=== PATIENT | male | born 1955 | race Caucasian/White ===

== ENCOUNTER → 2018-04-15 14:51 | Oncology outpatient (ONC) | payer OTHER, MEDICAID, SELFPAY ==
[2018-04-15 15:08] LABS: Add Manual Diff / Slide Review NO; Basophils Percent Auto 0.8 % (0-2); Eosinophils Percent Auto 2.9 % (2-4); Hematocrit 43.7 % (41-53); Hemoglobin 14.8 g/dL (13.5-17.5); Lymphocytes Percent Auto 22.7 % (25-40); Mean Corpuscular HGB Conc 33.8 % (30-36); Mean Corpuscular Hemoglobin 29.7 PG (26-34); Mean Corpuscular Volume 87.8 fL (80-100); Monocytes Percent Auto 9.4 % (3-14); Neutrophils Absolute Auto 4200 /uL (3000-5900); Neutrophils Percent Auto 64.2 % (50-75); Platelet Count 315 X10^3/uL (150-400); Red Blood Cell Count 4.98 X10^6/uL (4.5-5.9); Red Cell Distribution Width 14.3 % (11.6-14.8); White Blood Cell Count 6.5 X10^3/uL (4.5-11.0)
[2018-04-15 15:19] LABS: Alanine Aminotransferase 27 IU/L (21-72); Albumin 4.1 g/dL (3.5-5.0); Albumin Globulin Ratio 1.1 (1.0-2.8); Alkaline Phosphatase 100 U/L (38-126); Aspartate Aminotransferase 21 IU/L (17-59); Bilirubin Total 0.6 mg/dL (0.2-1.3); Blood Urea Nitrogen 11 mg/dL (9-20); Calcium 9.2 mg/dL (8.4-10.2); Carbon Dioxide 26 mmol/L (22-32); Chloride 102 mmol/L (98-107); Estimated Glomerular Filt Rate > 60.0 mL/min (>60); Globulin 3.8 g/dL (1.7-4.1); Glucose 109 mg/dL (80-110); HEMOLYSIS < 15 (0-50); Sodium 137 mmol/L (137-145); Total Protein 7.9 g/dL (6.3-8.2)
[2018-04-15 15:34] VITALS: BP 122/88; PULSE 84; RESP 18; TEMP 36.4; O2SAT 97
--- NOTE | 2018-04-15 15:35 | ONC.APRN.PN ---
Assessment and Plan (1) Squamous cell carcinoma Current visit: Yes Status: Acute 04/15/18 16:14 Navdeep is a 62-year-old male with history of perineal squamous cell carcinoma. He is followed by [facility] also Urology/Nephrology. He complains of cloudy/foul smelling urine today. Also complaining of back pain. [place]/2 weeks ago. We will collect urine specimen sent for urinalysis also urine culture. I will also send the patient for thoracic and lumbar spinal x-rays to rule out acute fracture. I will write him a prescription for Flexeril 5 mg 20.. I strongly encouraged the patient consider physical therapy if x-rays are negative. We have called in requested CT report from his urologist. Patient is self reporting he has ?lung cancer?. Understandably he is quite concerned and would like more information. Patient has appointment at [facility] April 22. Patient is to return shortly after this appointment to tie up above loose ends. 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 The patient then went on to receive 4 weeks of twice daily radiation therapy, sandwiched between 4 months of chemotherapy with irinotecan and carboplatin. His chemotherapy ran from April 04, 2017, through August 01, 2017. The patient was then seen in followup by Dr. Morin at [facility] in the fourth quarter of last year. A surveillance CAT scan and MRI of the pelvis on August 29, 2017, showed no metastases, with further reduction in the pelvic mass. A decision was made at that time to not pursue surgical intervention. I would note that the CAT scan of the chest in August confirmed pulmonary emboli. The patient has been on anticoagulation since that time. More recently, this gentleman had a surveillance CAT scan of the abdomen and pelvis on November 20, 2017. The previous pelvic mass in the perineum now appeared to be almost completely resolved. No new evidence of metastatic disease was noted. Appointment at [facility] next week April 22, 2018. Navdeep remains on daily xarelto. 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 We have called for this report. Patient reports ongoing cough x1 month. Also increased back pain times 1-1/2 weeks. Also reporting foul smelling urine, cloudy urine. Back pain is after suffering a ground [place] fall [place] the [place]. He has had similar pain before with acute injury. He is having difficulty sleeping due to pain. Pain comes and goes. It is exacerbated with movement. Coughing also exacerbates pain. Patient reports his cough is a dry cough, nonproductive. No shortness of breath. No fever or chills. Patient reports overall he is feeling ?really good?. However, understandably, he is concerned about this recent news on CT. Navdeep reports his short range air defense artillery did a CT scan and patient was subsequently informed ?you have a lung mass, it is probably lung cancer?. Results - Labs 04/15/18 14:57 04/15/18 14:57 Laboratory Last Values WBC 6.5 X10^3/uL (4.5-11.0) 04/15/18 14:57 RBC 4.98 X10^6/uL (4.5-5.9) 04/15/18 14:57 Hgb 14.8 g/dL (13.5-17.5) 04/15/18 14:57 Hct 43.7 % (41-53) 04/15/18 14:57 MCV 87.8 fL (80-100) 04/15/18 14:57 MCH 29.7 PG (26-34) 04/15/18 14:57 MCHC 33.8 % (30-36) 04/15/18 14:57 RDW 14.3 % (11.6-14.8) 04/15/18 14:57 Plt Count 315 X10^3/uL (150-400) 04/15/18 14:57 Neut % (Auto) 64.2 % (50-75) 04/15/18 14:57 Lymph % (Auto) 22.7 % (25-40) L 04/15/18 14:57 [place] % (Auto) 9.4 % (3-14) 04/15/18 14:57 Eos % (Auto) 2.9 % (2-4) 04/15/18 14:57 Baso % (Auto) 0.8 % (0-2) 04/15/18 14:57 Neut # (Auto) 4200 /uL (8397-1004) 04/15/18 14:57 Sodium 137 mmol/L (137-145) 04/15/18 14:57 Potassium 4.0 mmol/L (3.4-5.1) 04/15/18 14:57 Chloride 102 mmol/L (98-107) 04/15/18 14:57 Carbon Dioxide 26 mmol/L (22-32) 04/15/18 14:57 BUN 11 mg/dL (9-20) 04/15/18 14:57 Creatinine 1.00 mg/dL (0.66-1.25) 04/15/18 14:57 Estimated GFR > 60.0 mL/min (>60) 04/15/18 14:57 BUN/Creatinine Ratio 11.0 (6-22) 04/15/18 14:57 Glucose 109 mg/dL (80-110) 04/15/18 14:57 Calcium 9.2 mg/dL (8.4-10.2) 04/15/18 14:57 Total Bilirubin 0.6 mg/dL (0.2-1.3) 04/15/18 14:57 AST 21 IU/L (17-59) 04/15/18 14:57 ALT 27 IU/L (21-72) 04/15/18 14:57 Alkaline Phosphatase 100 U/L (38-126) 04/15/18 14:57 Total Protein 7.9 g/dL (6.3-8.2) 04/15/18 14:57 Albumin 4.1 g/dL (3.5-5.0) 04/15/18 14:57 Globulin 3.8 g/dL (1.7-4.1) 04/15/18 14:57 Albumin/Globulin Ratio 1.1 (1.0-2.8) 04/15/18 14:57 Home Medications and Allergies Home Medications Medication Instructions Recorded Confirmed Type polyethylene glycol 3350 [Miralax] 17 gm PO QDAY #0 08/08/17 History oxycodone 2 tab PO Q4HP PRN #120 tab 04/03/18 Rx cyclobenzaprine 5 mg PO Q8-10H PRN #20 tab 04/15/18 Rx Allergies Allergy/AdvReac Type Severity Reaction Status Date / Time No Known Allergies Allergy Uncoded 01/23/18 12:42 Exam Narrative: well appearing - Constitutional positive no acute distress - Routine HEENT Exam Head: Present: normocephalic, atraumatic ENT: Present: mucous membranes moist - Routine Neck Exam Present: supple. Absent: lymphadenopathy - Routine Respiratory Exam Present: Clear to auscultation bilaterally. Absent: rales, rhonchi, wheezes - Routine Cardiovascular Exam Present: RRR. Absent: JVD - Routine Abdominal Exam Present: soft, normoactive bowel sounds. Absent: tenderness, distended, organomegaly - Routine Extremities Exam Absent: edema, calf tenderness - Routine Back/Spine Exam Back/Spine: Present: paraspinal tenderness, vertebral tenderness, muscle spasm. Absent: CVA tenderness, abnormal straight leg raise, erythema, warmth Comments: TTP over T8 + paraspinal tenderness right approx T8 No flank pain - Routine Skin Exam Present: intact, normal turgor. Absent: petechiae, rash - Routine Neurological Exam Present: alert, oriented X3 - Routine Psychiatric Exam Present: normal affect
--- NOTE | 2018-04-15 15:41 | P.PNONC_ITS ---
Assessment and Plan (1) Squamous cell carcinoma Current visit: Yes Status: Acute 04/15/18 16:14 Navdeep is a 62-year-old male with history of perineal squamous cell carcinoma. He is followed by [facility] also Urology/Nephrology. He complains of cloudy/foul smelling urine today. Also complaining of back pain. He did [place] a fall at the beach about 1-1/2 weeks ago. We will collect urine specimen sent for urinalysis also urine culture. I will also send the patient for thoracic and lumbar spinal x-rays to rule out acute fracture. I will write him a prescription for Flexeril 5 mg 20.. I strongly encouraged the patient consider physical therapy if x-rays are negative. We have called in requested CT report from his urologist. Patient is self reporting he has ?lung cancer?. Understandably he is quite concerned and would like more information. Patient has appointment at [facility] April 22. Patient is to return shortly after this appointment to tie up above loose ends. 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 The patient then went on to receive 4 weeks of twice daily radiation therapy, sandwiched between 4 months of chemotherapy with irinotecan and carboplatin. His chemotherapy ran from April 04, 2017, through August 01, 2017. The patient was then seen in followup by Dr. Morin at [facility] in the fourth quarter of last year. A surveillance CAT scan and MRI of the pelvis on August 29, 2017, showed no metastases, with further reduction in the pelvic mass. A decision was made at that time to not pursue surgical intervention. I would note that the CAT scan of the chest in August confirmed pulmonary emboli. The patient has been on anticoagulation since that time. More recently, this gentleman had a surveillance CAT scan of the abdomen and pelvis on November 20, 2017. The previous pelvic mass in the perineum now appeared to be almost completely resolved. No new evidence of metastatic disease was noted. Appointment at [facility] next week April 22, 2018. Navdeep remains on daily xarelto. 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 We have called for this report. Patient reports ongoing cough x1 month. Also increased back pain times 1-1/2 weeks. Also reporting foul smelling urine, cloudy urine. Back pain is after suffering a [place] the [place]. He has had similar pain before with acute injury. He is having difficulty sleeping due to pain. Pain comes and goes. It is exacerbated with movement. Coughing also exacerbates pain. Patient reports his cough is a dry cough, nonproductive. No shortness of breath. No fever or chills. Patient reports overall he is feeling ?really good ?. However, understandably, he is concerned about this recent news on CT. Navdeep reports his plant operator control room operator did a CT scan and patient was subsequently informed ?you have a lung mass, it is probably lung cancer?. Results - Labs 04/15/18 14:57 04/15/18 14:57 Laboratory Last Values WBC 6.5 X10^3/uL (4.5-11.0) 04/15/18 14:57 RBC 4.98 X10^6/uL (4.5-5.9) 04/15/18 14:57 Hgb 14.8 g/dL (13.5-17.5) 04/15/18 14:57 Hct 43.7 % (41-53) 04/15/18 14:57 MCV 87.8 fL (80-100) 04/15/18 14:57 MCH 29.7 PG (26-34) 04/15/18 14:57 MCHC 33.8 % (30-36) 04/15/18 14:57 RDW 14.3 % (11.6-14.8) 04/15/18 14:57 Plt Count 315 X10^3/uL (150-400) 04/15/18 14:57 Neut % (Auto) 64.2 % (50-75) 04/15/18 14:57 Lymph % (Auto) 22.7 % (25-40) L 04/15/18 14:57 [place] % (Auto) 9.4 % (3-14) 04/15/18 14:57 Eos % (Auto) 2.9 % (2-4) 04/15/18 14:57 Baso % (Auto) 0.8 % (0-2) 04/15/18 14:57 Neut # (Auto) 4200 /uL (2588-5601) 04/15/18 14:57 Sodium 137 mmol/L (137-145) 04/15/18 14:57 Potassium 4.0 mmol/L (3.4-5.1) 04/15/18 14:57 Chloride 102 mmol/L (98-107) 04/15/18 14:57 Carbon Dioxide 26 mmol/L (22-32) 04/15/18 14:57 BUN 11 mg/dL (9-20) 04/15/18 14:57 Creatinine 1.00 mg/dL (0.66-1.25) 04/15/18 14:57 Estimated GFR > 60.0 mL/min (>60) 04/15/18 14:57 BUN/Creatinine Ratio 11.0 (6-22) 04/15/18 14:57 Glucose 109 mg/dL (80-110) 04/15/18 14:57 Calcium 9.2 mg/dL (8.4-10.2) 04/15/18 14:57 Total Bilirubin 0.6 mg/dL (0.2-1.3) 04/15/18 14:57 AST 21 IU/L (17-59) 04/15/18 14:57 ALT 27 IU/L (21-72) 04/15/18 14:57 Alkaline Phosphatase 100 U/L (38-126) 04/15/18 14:57 Total Protein 7.9 g/dL (6.3-8.2) 04/15/18 14:57 Albumin 4.1 g/dL (3.5-5.0) 04/15/18 14:57 Globulin 3.8 g/dL (1.7-4.1) 04/15/18 14:57 Albumin/Globulin Ratio 1.1 (1.0-2.8) 04/15/18 14:57 Home Medications and Allergies Home Medications Medication Instructions Recorded Confirmed Type polyethylene glycol 3350 [Miralax] 17 gm PO QDAY #0 08/08/17 History oxycodone 2 tab PO Q4HP PRN #120 tab 04/03/18 Rx cyclobenzaprine 5 mg PO Q8-10H PRN #20 tab 04/15/18 Rx Allergies Allergy/AdvReac Type Severity Reaction Status Date / Time No Known Allergies Allergy Uncoded 01/23/18 12:42 Exam Narrative: well appearing - Constitutional positive no acute distress - Routine HEENT Exam Head: Present: normocephalic, atraumatic ENT: Present: mucous membranes moist - Routine Neck Exam Present: supple. Absent: lymphadenopathy - Routine Respiratory Exam Present: Clear to auscultation bilaterally. Absent: rales, rhonchi, wheezes - Routine Cardiovascular Exam Present: RRR. Absent: JVD - Routine Abdominal Exam Present: soft, normoactive bowel sounds. Absent: tenderness, distended, organomegaly - Routine Extremities Exam Absent: edema, calf tenderness - Routine Back/Spine Exam Back/Spine: Present: paraspinal tenderness, vertebral tenderness, muscle spasm. Absent: CVA tenderness, abnormal straight leg raise, erythema, warmth Comments: TTP over T8 + paraspinal tenderness right approx T8 No flank pain - Routine Skin Exam Present: intact, normal turgor. Absent: petechiae, rash - Routine Neurological Exam Present: alert, oriented X3 - Routine Psychiatric Exam Present: normal affect
[2018-04-15 17:00] LABS: Appearance Urine UA SL CLOUDY; Bilirubin Urine UA NEGATIVE (NEGATIVE); Color Urine UA YELLOW; Glucose Urine UA NEGATIVE (Normal); Ketones Urine UA NEGATIVE (NEGATIVE); Leukocyte Esterase Urine UA 1+ (NEGATIVE); Nitrite Urine UA POSITIVE (Negative); Occult Blood Urine UA TRACE-LYSED (Negative); Protein Urine UA NEGATIVE (Negative); Urobilinogen Urine UA 0.2 E.U./dL (0.2)
[2018-04-15 17:04] LABS: RBC Urine 0-1/HPF (0-5/HPF); WBC Urine 30-100/HPF (0-5/HPF)
[2018-04-15 17:05] LABS: Bacteria Urine Many (>30); Culture Indicated Urine Specimen Cultured; Squamous Epithelial Cell Urine 0-1 /HPF
--- NOTE | 2018-04-25 12:11 | PC.NURSE ---
Addendum entered by Rain Mena R.N. 04/26/18 15:13: Per Shelly, pt was issued a 30 day supply. He is currently under the care of Dr Lezama at [facility] and further refills should be per him Original Note: Pt called today requesting a refill on his oxycodone 5mg tabs. Sig is 2 tab PO Q4HP PRN #120. If agreed please drive a script to be placed in Will Call for bean picker machine operator by pt.
--- NOTE | 2018-04-29 08:45 | PC.NURSE ---
Pt's called early this am wanting pt to be scheduled to be seen today due to difficulty talking Schedulers asked triage to assess.Spoke with pt's Pascale who reports Navdeep is experiencing facial paralysis and aphasia.Explained that due to the seriousness of his neurological symptoms he is best evaluated at the ER. explained this to pt .Had discussed with Shelly MARTINEZ prior who agreed with the plan.
== END ==
PROVIDERS: Visit Provider Nurse Practitioner Gerontology
DX: C76.3 Malignant neoplasm of pelvis (principal); M54.9 Dorsalgia, unspecified; R05 Cough; Z79.02 Long term (current) use of antithrombotics/antiplatelets
CPT/HCPCS: 36415; 80053; 81001; 85025; 87077; 87086; 87186; 99214

== ENCOUNTER → 2018-04-25 14:25 | Outpatient (CLI) | payer OTHER, MEDICAID, SELFPAY ==
--- NOTE | 2018-04-25 | DI.RAD.S_ITS ---
PROCEDURE: XR LUMBAR SPINE 2-3V INDICATIONS: ACUTE BACK PAIN S/P FALL TECHNIQUE: 3 views of the lumbar spine were acquired. COMPARISON: None. FINDINGS: Bones: 5 [id number] vertebrae are present. Spine is tilted to the right and there is mild retrolisthesis at L1-2, L2-3 and L3-4. Advanced disc degeneration and spurring at all lumbar levels, most marked at L3-4 and L4-5. No vertebral body compression fractures. No suspicious bony lesions. Soft tissues: Overlying bowel gas pattern is normal. No suspicious soft tissue calcifications. IMPRESSION: Chronic degenerative spine disease. No acute bony abnormality. Dictated by: Khari Brito M.D. on 04/25/2018 at 15:04 Approved by: Khari Brito M.D. on 04/25/2018 at 15:06
--- NOTE | 2018-04-25 | DI.RAD.S_ITS ---
PROCEDURE: XR THORACIC SPINE 3V INDICATIONS: ACUTE BACK PAIN S/P FALL TECHNIQUE: 3 views of the thoracic spine were acquired. COMPARISON: None. FINDINGS: Bones: No fractures or dislocations. No suspicious bony lesions. 12 pairs of ribs are noted, and appear intact where visualized. Soft tissues: No paravertebral stripe thickening. IMPRESSION: Negative for fracture Dictated by: Khari Birto M.D. on 04/25/2018 at 15:03 Approved by: Khari Brito M.D. on 04/25/2018 at 15:04
--- NOTE | 2018-06-14 09:32 | ONC.NAV ---
Description: [facility] Records Request Activity: [employer] compiled and faxed pt's ONC records to the [employer], per their request.
== END ==
PROVIDERS: Visit Provider Nurse Practitioner Gerontology
DX: M54.9 Dorsalgia, unspecified (principal)
CPT/HCPCS: 72072; 72100

== ENCOUNTER 2018-04-29 10:31 | Emergency (ER) | payer OTHER, MEDICAID, SELFPAY ==
--- NOTE | 2018-04-29 10:35 | ED.NEUROSD ---
HPI - Neuro Symptoms/Deficit General Chief Complaint: Neuro Symptoms/Deficit Stated Complaint: right side weakness, states possible stroke Time Seen by Provider: 04/29/18 10:33 Source: patient and family Mode of arrival: ambulatory Limitations: no limitations History of Present Illness HPI Narrative: patient is a 62-year-old male brought in by family members for concerns of a possible stroke. Initially it was difficult obtaining a history because the patient states that on Sunday he started having vague neurologic symptoms in his arms and legs and then he stated that the symptoms that brought him in today started later Sunday night. His family member who is at bedside stated that the symptoms started at 5 o'clock yesterday. The family member also states that yesterday afternoon his symptoms improved but the patient denies this. His symptoms include weakness in his right arm and his right leg. Reports of the right side of his face drooping and also problems finding words. Patient denies headaches or vision changes. He states that he can speak but just has difficulty finding words. Initially he stated that he was taking anticoagulation but upon further questioning he states that he has not taken any these medicines for over a month. Patient does have a history of bladder cancer. He has been treated for this with radiation and chemotherapy. Sometime within the past several months patient had respiratory symptoms. It was initially thought that he had a pulmonary embolism and that was why he was on the anticoagulation. A his family member then stated that the presumed clot was actually metastasis to his lungs. He has not undergone any treatment for this. His oncologist is Dr. Banks at [facility]. His primary doctor is Dr. noguera located here in the [facility] area. Related Data Home Medications Medication Instructions Recorded Confirmed polyethylene glycol 3350 [Miralax] 17 gm PO QDAY PRN #0 08/08/17 04/29/18 oxycodone 2 tab PO Q4H PRN 04/29/18 04/29/18 Allergies Allergy/AdvReac Type Severity Reaction Status Date / Time No Known Drug Allergies Allergy Verified 04/29/18 10:37 Review of Systems Constitutional Denies chills, Denies fatigue, Denies fever(s), Denies frequent falls, Denies headache(s) and Denies weakness Eyes Denies blind spots, Denies blurry vision, Denies change in vision, Denies diplopia and Denies eye pain ENT Ears, Nose, Mouth, and Throat: Denies vertigo, Denies dizziness, Denies dry mouth, Denies otalgia, Denies facial pain, Denies headache(s), Denies disequilibrium, Denies sinus pressure, Denies sore throat and Denies throat swelling Cardiovascular Denies chest pain, Denies syncope, Denies palpitations and Denies dyspnea Respiratory Denies cough and Denies dyspnea Gastrointestinal Gastrointestinal: Denies abdominal pain, Denies constipation, Denies diarrhea, Denies nausea and Denies vomiting Genitourinary Reports flank pain ( left-sided flank pain. Patient states that he has a kidney stone) Comments: Patient with a suprapubic catheter in place Musculoskeletal Denies myalgias, Denies deformity, Denies arthralgias, Denies joint swelling and Denies numbness Comments: right arm weakness right leg weakness Integumentary/Breasts Denies lesions and Denies rash Neurologic Reports behavioral changes, Reports confusion, Denies vertigo, Denies dizziness, Denies syncope, Denies frequent falls, Denies headache(s), Reports focal weakness, Denies memory loss, Denies numbness, Denies convulsions, Denies seizure-like activity, Denies tremor(s), Denies disequilibrium and Denies weakness Psychiatric Reports behavioral changes, Reports confusion, Denies depression and Denies memory loss Endocrine Denies fatigue and Denies palpitations Hematologic/Lymphatic Denies easy bleeding and Denies easy bruising Allergic/Immunologic Denies urticaria and Denies throat swelling Exam Initial Vital Signs Initial Vital Signs: Vital Signs Pulse Rate 93 H 04/29/18 10:53 Respiratory Rate 17 04/29/18 10:53 Blood Pressure 150/95 H 04/29/18 10:53 Pulse Oximetry 100 04/29/18 10:53 Const General: healthy appearing and No acute distress Nutritional Appearance: obese Orientation: alert and oriented x3 [facility] Head: normal to inspection, normocephalic and atraumatic Ears: hearing grossly normal bilaterally Nose: external nose normal Face and sinus: normal facial exam and face symmetric Mouth: oral mucosae normal Eyes Eyelids: eyelids normal Pupils: PERRL EOM: EOM intact bilaterally Chest Chest: normal inspection of the chest Resp Effort & Inspection: normal respiratory effort Auscultation: clear to auscultation bilaterally Cardio Rate: regular rate Rhythm: regular rhythm Heart Sounds: no murmurs Pulses: radial pulses present GI Inspection: non-distended Palpation: soft, No firm, No guarding and No tender Other: Suprapubic catheter in place Back/Spine/Pelvis Back: CVA tenderness left Skin Lesions: no lesions Rashes: no rashes Other: diaphoretic Neuro General: alert, awake and oriented x3 Cranial Nerves: CN's II-XI intact bilaterally, PERRL and EOM intact bilaterally Cognition: normal cognition Speech: expressive aphasia and other ( does not slur words) Gait: ataxic and wide-based Sensory Exam: no sensory deficits noted Other: patient with 3/5 strength right upper extremity 5/5 strength left upper extremity Patient with 3/5 strength right lower extremity 5/5 strength left lower extremity No changes in sensation patient able to do heel to alexandra with left lower extremity difficulty with heel to alexandra right lower extremity. Difficulty with finger to nose right upper extremity no problems with doing this left upper extremity Patient is not slurring his words. Does seem to have problems finding words. Cranial nerve exam unremarkable Patient able to follow commands Extrem Other: see neurologic section for strength otherwise unremarkable extremity exam no gross deformities Psych Appearance: grossly normal and well kempt Mood: angry Scores NIH Stroke Scale Level of Conciousness: Alert, keenly responsive Ask month/age: Answers both questions correctly. Open/close eyes, close hand: Performs both tasks correctly Best gaze horizontal: Normal Visual meehan: No visual loss Facial palsy: Normal symetrical movement Left arm drift: No drift for full 10 sec Right arm drift: Some effort against gravity, cannot maintain, drifts down to bed Left leg drift: No drift for full 10 sec Right leg drift: Drifts down, not to bed Limb ataxia: Present in one limb Sensory on face/arms/legs: Normal, no sensory loss Best language: Mild to moderate, slurs some words Dysarthria: Normal Extinction or inattention: No abnormality Total NIH Stroke scale score: 5 Course Orders Ordered: ED Orders 04/29/18 10:34 CT head/brain wo con Stat 04/29/18 10:35 EKG-12 Lead Stat 04/29/18 10:55 Basic Metabolic Panel Stat Complete Blood Count AUTO DIFF Stat Partial Thromboplastin Time Stat Prothrombin Time INR Stat Discontinued Medications Aspirin (Aspirin Chew) 324 mg PO NOW ONE Stop: 04/29/18 10:35 Last Admin: 04/29/18 11:30 Dose: Dexamethasone (Decadron) 10 mg IV NOW ONE Stop: 04/29/18 12:57 Morphine Sulfate (Morphine) 4 mg IV NOW ONE Stop: 04/29/18 12:22 Last Admin: 04/29/18 12:24 Dose: 4 mg Vital Signs - 8 hr 04/29/18 10:53 Pulse Rate 93 H Respiratory Rate 17 Blood Pressure 150/95 H Pulse Oximetry 100 MDM - Neuro Symptoms/Deficit Lab Data Attestation: I reviewed the patient's lab results. Result diagrams: 04/29/18 10:55 04/29/18 10:55 Lab Results 04/29/18 04/29/18 04/29/18 Range/Units 10:55 10:55 10:55 WBC 6.1 (4.5-11.0) X10^3/uL RBC 4.82 (4.5-5.9) X10^6/uL Hgb 14.2 (13.5-17.5) g/dL Hct 41.9 (41-53) % MCV 86.9 (80-100) fL MCH 29.4 (26-34) PG MCHC 33.9 (30-36) % RDW 13.7 (11.6-14.8) % Plt Count 360 (150-400) X10^3/uL Neut % (Auto) 69.3 (50-75) % Lymph % (Auto) 19.6 L (25-40) % Howard % (Auto) 7.9 (3-14) % Eos % (Auto) 2.2 (2-4) % Baso % (Auto) 1.0 (0-2) % Neut # (Auto) 4200 (9372-4804) /uL PT 13.6 H (10.1-12.7) SECONDS INR 1.3 (0.9-1.3) APTT 30 (26.4-36.2) SECONDS Sodium 138 (137-145) mmol/L Potassium 3.9 (3.4-5.1) mmol/L Chloride 102 (98-107) mmol/L Carbon Dioxide 25 (22-32) mmol/L BUN 8 L (9-20) mg/dL Creatinine 1.00 (0.66-1.25) mg/dL Estimated GFR > 60.0 (>60) mL/min BUN/Creatinine Ratio 8.0 (6-22) Glucose 155 H (80-110) mg/dL Calcium 9.5 (8.4-10.2) mg/dL Imaging Data CT scan - head: Radiologist's impression: PROCEDURE: CT HEAD/BRAIN WO CON INDICATIONS: Right-sided weakness possible stroke TECHNIQUE: Noncontrast 4.5 mm thick angled axial sections acquired from the foramen magnum to the vertex, with coronal and sagittal reformats. For radiation dose reduction, the following was used: automated exposure control, adjustment of mA and/or kV according to patient size. COMPARISON: None. FINDINGS: Image quality: Excellent. CSF spaces: Basal cisterns are patent. No extra-axial fluid collections. Ventricles are normal in size and shape. Brain: There is a large 4.2 x 6.5 x 4.5 cm geographic hypodensity within the left frontal lobe, occupying approximately 1/3 of the left cerebrum volume and causing mild deviation of the midline structures to the right. There is no associated hemorrhage. Within the anterolateral aspect of the defect is a smaller 15 mm hypodensity that appears to have a thickened rim. While this abnormality may represent a subacute or chronic infarct, the appearance is suggestive of a malignant tumor with prominent vasogenic edema and mass effect. A contrast study or MRI imaging of the brain is advised. An additional area of hypodense brain tissue is present at the base of the right frontal lobe estimated at 1.8 x 3.7 x 1.5 cm in size. Presence of a second, similar appearing lesion increases likelihood of malignancy and possibility of metastatic disease. Skull and face: Calvarium and visualized facial bones are intact. There is an 8mm lytic area in the left calvarium at the junction of the frontal and parietal bones, nonspecific as are additional smaller hypodensities within bone. Sinuses: Visualized sinuses and mastoids are clear. IMPRESSION: 1. Findings are highly suspect for metastatic brain disease. Recommend contrast enhanced CT or contrast-enhanced MRI brain for further evaluation. Chest x-ray also recommended. Findings were discussed with Dr. Agee in the ED at 11:15 hrs. on 04/29/2018 Dictated by: Khari Brito M.D. on 04/29/2018 at 11:05 Approved by: Khari Brito M.D. on 04/29/2018 at 11:20 ECG Data Attestation: I personally reviewed and interpreted this ECG as follows: Prior ECG tracings: not available for review Interpretation: sinus rhythm ventricular rate 85 Frequent PVCs normal QRS normal QTC No ST T wave changes MDM Narrative Medical decision making narrative: patient came in as a code stroke. He was given aspirin. unsure as the exact onset of the symptoms. The patient states that it was Sunday however his family at bedside states that it was yesterday. Initially patient did state that he was on anticoagulation and then stated that he has not taken it for several months now. His oncologist is down at the [facility]. Head CT shows concerning signs for brain metastasis. I did discuss this diagnosis with the patient and family. I discussed the case with Dr. Rodriguez at [facility] in the emergency department who accepts the patient in transfer. He was given Decadron here in the emergency department. He was also given morphine for his left-sided flank pain. Initially patient was reluctant to be transported stating that he wanted to at home but I informed him that sending him to a place where they had specialist services were in his best interest. He did expressed understanding and agreement with plan. Discharge Plan Departure Patient Disposition: [facility] Clinical Impression: Brain metastases, Bladder cancer, Acute flank pain, Expressive aphasia Prescriptions: No Action polyethylene glycol 3350 [Miralax] 119 GM powder 17 gm PO QDAY PRN (Reason: Constipation) Qty: 0 RF: 0 oxycodone 5 mg tablet 2 tab PO Q4H PRN (Reason: Pain, Severe) RF: 0
[2018-04-29 10:53] VITALS: BP 150/95; PULSE 93; RESP 17; O2SAT 100
[2018-04-29 11:00] LABS: Add Manual Diff / Slide Review NO; Eosinophils Percent Auto 2.2 % (2-4); Hematocrit 41.9 % (41-53); Hemoglobin 14.2 g/dL (13.5-17.5); Lymphocytes Percent Auto 19.6 % (25-40); Mean Corpuscular HGB Conc 33.9 % (30-36); Mean Corpuscular Hemoglobin 29.4 PG (26-34); Mean Corpuscular Volume 86.9 fL (80-100); Monocytes Percent Auto 7.9 % (3-14); Neutrophils Absolute Auto 4200 /uL (3000-5900); Neutrophils Percent Auto 69.3 % (50-75); Platelet Count 360 X10^3/uL (150-400); Red Blood Cell Count 4.82 X10^6/uL (4.5-5.9); Red Cell Distribution Width 13.7 % (11.6-14.8); White Blood Cell Count 6.1 X10^3/uL (4.5-11.0)
[2018-04-29 11:08] LABS: INR 1.3 (0.9-1.3); Prothrombin Time 13.6 SECONDS (10.1-12.7)
[2018-04-29 11:10] LABS: PTT Partial Thromboplastin Tim 30 SECONDS (26.4-36.2)
[2018-04-29 11:11] LABS: Blood Urea Nitrogen 8 mg/dL (9-20); Calcium 9.5 mg/dL (8.4-10.2); Carbon Dioxide 25 mmol/L (22-32); Chloride 102 mmol/L (98-107); Estimated Glomerular Filt Rate > 60.0 mL/min (>60); Glucose 155 mg/dL (80-110); HEMOLYSIS 39 (0-50); Potassium 3.9 mmol/L (3.4-5.1); Sodium 138 mmol/L (137-145)
[2018-04-29 11:30] VITALS: BP 136/80; PULSE 80; RESP 14; O2SAT 97
[2018-04-29] MEDS: MORPHINE 4 MG/ML INJ IV (12:24)
--- NOTE | 2018-04-29 12:54 | PC.NURSE ---
pt asking for oxycodone for pain in left back/flank area. he thinks he has a kidney stone. he is experiencing some expressive aphasia and knows when he isn't speaking the way he wants to. We were able to determine that he is worried about his children and wants to prepare them for what to expect with his current diagnosis. I invited Dr. Agee to talk with him again related to his not wanting to go to the [facility] [place] [place] today for care. Dr. Agee talked with pt at length to explain his findings and what that means for him and the care the patient needs. At one point the patient wanted to leave and tried getting himself up to a sitting position in the gurney but wasn't able to sit himself up related to right sided weakness. The patient finally consented related to his 's response (she was crying) and he has decided to concede and get treatment. Pt is in room now with his and children. I attempted to get his needs met and make him comfortable. We boosted him up in the gurney and took off his pants. He fixed his pillow with his left hand and thanked me for my care.
[2018-04-29 13:00] VITALS: BP 112/70; PULSE 78; RESP 13; O2SAT 98
[2018-04-29] MEDS: DEXAMETHASONE 10 MG/ML VIAL IV (13:05)
[2018-04-29 13:31] VITALS: BP 135/78; PULSE 75; RESP 10; O2SAT 99
== END 2018-04-29 14:38 | disposition short-term general hospital (02) ==
PROVIDERS: Emergency Provider Emergency Medicine
DX: C67.9 Malignant neoplasm of bladder, unspecified (principal); C79.31 Secondary malignant neoplasm of brain; R47.01 Aphasia; R10.9 Unspecified abdominal pain
CPT/HCPCS: 70450; 80048; 82962; 85025; 85610; 85730; 93005; 96374; 96375; 99283; 99285; 99291; J1100; J2270

== ENCOUNTER 2018-05-20 14:24 | Emergency (ER) | payer OTHER, MEDICAID, SELFPAY ==
[2018-05-20 14:27] VITALS: BP 145/98; PULSE 90; RESP 20; TEMP 35.9; O2SAT 99
--- NOTE | 2018-05-20 14:34 | DI.RAD.S_ITS ---
PROCEDURE: XR RIBS RT MIN 3V W CXR 1V INDICATIONS: PAIN TECHNIQUE: 2 views of the right ribs were acquired, along with a single view chest. COMPARISON: [facility], CT, CHEST/ABD/PEL WITH CONTRAST, 07/30/2017, 14:57. FINDINGS: Surgical changes and devices: None. Bones and chest wall: Moderately displaced right posterior lateral 5th rib fracture. No suspicious bony lesions. Overlying soft tissues appear unremarkable. Lungs and pleura: No pleural effusions or pneumothorax. 40 mm diameter masses within the left perihilar location and left midlung. 54 mm diameter mass within the right lung base. Mediastinum: Mediastinal contours appear normal. Heart size is normal. IMPRESSION: 1. Right 5th rib fracture. 2. Bilateral pulmonary metastases. Dictated by: Dre Driscoll M.D. on 05/20/2018 at 15:00 Approved by: Dre Driscoll M.D. on 05/20/2018 at 15:02
--- NOTE | 2018-05-20 15:00 | ED_ITS ---
HPI - Back Pain/Injury <Ana Burton PA-C - Last Filed: 05/20/18 21:50> General Chief Complaint: Back Pain/Injury Stated Complaint: COUGH/RIGHT SIDE RIB PAIN Time Seen by Provider: 05/20/18 14:59 Source: patient Mode of arrival: ambulatory Limitations: no limitations History of Present Illness HPI Narrative: This 62-year-old male comes into the ED today due to cough and rib pain. He states that he thinks he had a broken rib. He states that he has had a cough since prior to his visit here last month for acute right-sided paralysis. He was found to have probable brain metastases and transferred to [facility]. He states that he had a mass excised, and a 2nd was found that will need treatment. His paralysis has resolved. He states the cough has worsened gradually and now has pain with cough, sneeze, or pressure on the right side. He states this has been going on since during his hospitalization. He denies fever. He denies any dyspnea at all and states ?my breathing is fine?. He denies any congestion, sore throat, or earache. He denies any rash or other new symptoms such as swelling or pain in the extremities. He does state that he has been told he probably has lung cancer and metastatic cancer, and is seeing his oncologist tomorrow. He states that he believes he has a history of remote pulmonary embolism in the setting of chemotherapy. He states that he has been on Lovenox since at [place] due to immobility and has not missed any doses. Related Data Home Medications Medication Instructions Recorded Confirmed polyethylene glycol 3350 [Miralax] 17 gm PO QDAY PRN #0 08/08/17 05/20/18 oxycodone 2 tab PO Q4H PRN 04/29/18 05/20/18 benzonatate 1 cap PO TID PRN 05/20/18 05/20/18 enoxaparin 40 mg SUB-Q QPM 05/20/18 05/20/18 pantoprazole 40 mg PO DAILY 05/20/18 05/20/18 trazodone 100 mg PO BEDTIME 05/20/18 05/20/18 Previous Rx's Medication Instructions Recorded lidocaine 3 patch TOP DAILY #15 each 05/20/18 Allergies Allergy/AdvReac Type Severity Reaction Status Date / Time No Known Drug Allergies Allergy Verified 04/29/18 10:37 Review of Systems <Ana Burton PA-C - Last Filed: 05/20/18 21:50> Review of Systems All systems reviewed & are unremarkable except as noted in HPI and below Exam <Ana Burton PA-C - Last Filed: 05/20/18 21:50> Narrative Exam Narrative: GENERAL APPEARANCE: Patient sitting comfortably, in no distress. HEENT: PERRL, EOMI, normal TMs, some PND noted. NECK/THYROID: Neck supple, there is a 2 cm left anterior cervical node, nontender. No other lymphadenopathy noted LUNGS: Clear to auscultation bilaterally with some splinting. No cough on exam. He speaks in complete sentences and does not appear short of breath when moving about the room. CHEST: Minimal right mid upper rib tenderness posterior laterally. Tenderness elicited with right shoulder external rotation HEART: Regular rate and rhythm without murmur, normal S1, S2, no S3 or S4. ABDOMEN: Soft, NT, ND EXTREMITIES: No edema. No calf tenderness NEUROLOGIC: Alert and oriented, normal speech, gait and coordination. DERMATOLOGIC: No exanthem Initial Vital Signs Initial Vital Signs: Vital Signs Temperature 96.6 F L 05/20/18 14:27 Pulse Rate 90 05/20/18 14:27 Respiratory Rate 20 05/20/18 14:27 Blood Pressure 145/98 H 05/20/18 14:27 Pulse Oximetry 99 05/20/18 14:27 <Pardeep Rosado MD - Last Filed: 05/31/18 08:20> Initial Vital Signs Initial Vital Signs: Vital Signs Temperature 96.6 F L 05/20/18 14:27 Pulse Rate 90 05/20/18 14:27 Respiratory Rate 20 05/20/18 14:27 Blood Pressure 145/98 H 05/20/18 14:27 Pulse Oximetry 99 05/20/18 14:27 Course <Ana Burton PA-C - Last Filed: 05/20/18 21:50> Additional Information: Reviewed x-ray findings with patient. He has been compliant with Lovenox, however explained concerned given his history of immobility, probable PE and malignancy, there is still a possibility of pulmonary embolus and recommended CT scan. He states that he is absolutely unable to do this today and declined scan. I did advise that potentially pulmonary embolus could be deadly, and he states that he understands this but does not want further testing today. He does have a rib fracture with right- sided pain in the setting of prolonged cough. He has been taking oxycodone 15 mg up to every 3 hr as advised without sufficient improvement. I did advise him he can increase this to 20 mg and follow up with his oncologist tomorrow. Advised we would not change his pain medication here as he had asked about fentanyl patch. Did advise trial of lidocaine patches. He did agree to return here if feeling acutely worse. Orders Ordered: ED Orders 05/20/18 14:34 XR ribs RT min 3V w CXR1V Stat Vital Signs - 8 hr 05/20/18 14:27 Temperature 96.6 F L Pulse Rate 90 Respiratory Rate 20 Blood Pressure 145/98 H Pulse Oximetry 99 <Pardeep Rosado MD - Last Filed: 05/31/18 08:20> Orders Ordered: ED Orders 05/20/18 14:34 XR ribs RT min 3V w CXR1V Stat Vital Signs - 8 hr 05/20/18 14:27 Temperature 96.6 F L Pulse Rate 90 Respiratory Rate 20 Blood Pressure 145/98 H Pulse Oximetry 99 MDM - Back Pain/Injury <Ana Burton PA-C - Last Filed: 05/20/18 21:50> Imaging Data Chest x-ray: Radiologist's impression: [address] [address] XRay Report Signed Patient: Hugo Allison MR#: [id number] : 1955 Acct:[id number] Age/Sex: 62 / M Date of Service: 05/20/18 Loc: ED Accession Number: [id number] Procedure: XR ribs RT min 3V w CXR1V Ordering Provider: Pardeep Rosado M.D. PROCEDURE: XR RIBS RT MIN 3V W CXR 1V INDICATIONS: PAIN TECHNIQUE: 2 views of the right ribs were acquired, along with a single view chest. COMPARISON: [facility], CT, CHEST/ABD/PEL WITH CONTRAST, 07/30/2017, 14: 57. FINDINGS: Surgical changes and devices: None. Bones and chest wall: Moderately displaced right posterior lateral 5th rib fracture. No suspicious bony lesions. Overlying soft tissues appear unremarkable. Lungs and pleura: No pleural effusions or pneumothorax. 40 mm diameter masses within the left perihilar location and left midlung. 54 mm diameter mass within the right lung base. Mediastinum: Mediastinal contours appear normal. Heart size is normal. IMPRESSION: 1. Right 5th rib fracture. 2. Bilateral pulmonary metastases. Dictated by: Dre Driscoll M.D. on 05/20/2018 at 15:00 Approved by: Dre Driscoll M.D. on 05/20/2018 at 15:02 Discharge Plan Departure Patient Disposition: Home Clinical Impression: Closed rib fracture, Cough Discharge Date/Time: 05/20/18 16:13 Instructions: DI for Rib Fracture Activity Restrictions/Additional Instructions: Your x-ray shows a right rib fracture today in the area where you have pain. This may be the explanation for your pain. There was no specific explanation found for your cough, such as pneumonia. We have suggested further testing including a CT scan of your chest to evaluate for blood clots. As we talked about, you have risk factors for this. Since you have chosen to forego this, please be sure to keep your oncology appointment tomorrow and we will forward these records. Please return as we talked about if you have any worsening symptoms such as new shortness of breath. You should talk to the oncologist about whether the lung nodules may be the reason for your chronic cough or whether further testing is needed. You can increase your oxycodone to 20 mg per dose to see if this is helpful for you, and I have also sent in a prescription for lidocaine patches to the pharmacy to put on the sore areas on your ribs. If insurance does not cover these, they are also available over-the- counter in a similar formula. Prescriptions: New lidocaine 5 % adhesive patch,medicated 3 patch TOP DAILY Qty: 15 RF: 0 No Action polyethylene glycol 3350 [Miralax] 119 GM powder 17 gm PO QDAY PRN (Reason: Constipation) Qty: 0 RF: 0 oxycodone 5 mg tablet 2 tab PO Q4H PRN (Reason: Pain, Severe) RF: 0 benzonatate 200 mg capsule 1 cap PO TID PRN (Reason: Cough) RF: 0 trazodone 100 mg tablet 100 mg PO BEDTIME RF: 0 pantoprazole 40 mg tablet,delayed release (DR/EC) 40 mg PO DAILY RF: 0 enoxaparin 40 mg/0.4 mL syringe 40 mg Sub-Q QPM RF: 0 Referrals: Eduardo Lezama MD [Physician] - <Pardeep Rosado MD - Last Filed: 05/31/18 08:20> Sign Out Provider Sign Out Attestation: The PA/OTORHINOLARYNGOLOGIST functioned independently for the care of this pt, I was available, but not asked to participate in care. I am unable to determine appropriateness of management without personally examining the pt.
== END 2018-05-20 16:13 | disposition home or self-care (01) ==
PROVIDERS: Emergency Provider Internal Medicine
DX: S22.39XA Fracture of one rib, unspecified side, initial encounter for closed fracture (principal); R05 Cough
CPT/HCPCS: 71101; 99281; 99283

== ENCOUNTER → 2018-05-31 09:38 | Outpatient (CLI) | payer OTHER, MEDICAID, SELFPAY ==
--- NOTE | 2018-05-31 | DI.CT.S_ITS ---
PROCEDURE: CT CHEST ABD PEL W CON INDICATIONS: BRAIN METASTASIS history of urethral cancer. TECHNIQUE: After the administration of oral and intravenous contrast, 5 mm thick sections acquired from the lung apices to the symphysis. 5 mm coronal and sagittal reformats were performed, with additional 7 mm coronal MIP reformats through the lungs. For radiation dose reduction, the following was used: automated exposure control, adjustment of mA and/or kV according to patient size. COMPARISON: [facility], CR, XR RIBS RT MIN 3V W CXR 1V, 05/20/2018, 14:15. [facility], CT, CHEST/ABD/PEL WITH CONTRAST, 07/30/2017, 14:57. FINDINGS: Image quality: Excellent. CHEST: Lungs and pleura: There is a lobulated 3.9 x 2.6 cm soft tissue mass in posterior lateral aspect of left upper lobe not seen on previous study. There is also a 3.3 x 4.1 cm soft tissue mass involving superior segment of left lower lobe posterior to left hilum, also new since previous study. 21 cm soft tissue density mass is seen in the superior aspect of the left lower lobe posterior to left hilar region. 6.3 x 6.8 cm soft tissue mass involving posterior medial aspect of the right middle lobe extending to right hilar region is also seen, also new since previous study. The finding is consistent with extensive bilateral pulmonary metastatic disease. Bibasilar scarring/atelectasis are seen. No pleural effusions or pneumothorax. Central and peripheral airways appear patent and normal in caliber. Mediastinum: Heart size is normal. No pericardial effusion. No mediastinal or hilar adenopathy by size criteria. Thoracic aorta and central pulmonary arteries are normal in size. Esophagus is normal in caliber. Moderate size hiatal hernia is seen. Chest wall: No axillary or supraclavicular adenopathy by size criteria. Thyroid gland is within normal limits. 4.3 x 5.1 cm expansile soft tissue mass involving right anterior chest wall is seen with erosion and destruction of right anterior fifth rib. 1.9 x 2.8 cm expansile lytic lesion involving right posterior lateral fifth rib is also seen with rib destruction. Finding is consistent with bony metastasis. ABDOMEN: Solid organs: 2 hypodense lesions are noted involving right hepatic dome measures 2.9 x 3.2 cm, and 3.2 x 3.4 cm in size. These were not seen on previous study in 2017 and is consistent with metastatic disease. 5 mm hypodense area is again noted in the inferior aspect of right hepatic lobe unchanged from previous study and is consistent with small cysts. Gallbladder is within normal limits. Biliary system is non dilated. Pancreas enhances normally. Spleen is normal in size and enhancement. No adrenal nodules. Kidneys demonstrate normal size and enhancement. Prominence of left renal collecting system is again seen with normal appearing left ureter, unchanged from previous study. No obstructing renal stone is seen. Peritoneum and bowel: Bowel loops demonstrate normal wall thickness and caliber. No free fluid or air. Nodes and vessels: No retroperitoneal or mesenteric adenopathy by size criteria. Subcentimeter left periaortic lymph nodes are seen measures up to 8 mm in short axis diameter. Aorta and inferior vena cava are normal in size. Miscellaneous: No ventral hernias. PELVIS: Genitourinary: Again noted is a suprapubic tube with diffuse urinary bladder wall thickening. No definite underlying bladder wall mass is seen. Prostate gland and seminal vesicles are within normal limits. Miscellaneous: No inguinal hernias or adenopathy. Bones: There is suggestion of lytic lesion involving left inferior portion of T12 vertebral body, adjacent central portion of L1 vertebral body. There is also a large lytic lesion noted involving left side of sacrum at S1 and S2 levels suggestive of additional metastatic disease. IMPRESSION: 1. Interval development of 4 large soft tissue density masses in bilateral lung meehan as described in detail above, consistent with large pulmonary metastatic disease. 2. Interval development of 2 large hypodense lesions involving right hepatic dome and are consistent with hepatic metastatic disease. 3. Expansile lytic lesions involving posterior lateral and anterior right fifth rib with extension to involve right anterior chest wall muscle. Additional lytic lesions involving T12, L1 and left upper sacrum, suggestive of multiple bony metastasis. Dictated by: Yuri Flores M.D. on 05/31/2018 at 12:28 Approved by: Yuri Flores M.D. on 05/31/2018 at 12:49
--- NOTE | 2018-05-31 | DI.NM.S_ITS ---
PROCEDURE: NM BONE SCAN WHOLE BODY RADIOPHARMACEUTICAL: 22.0 mCi Tc-99m MDP IV. INDICATIONS: BRAIN METASTASIS TECHNIQUE: Delayed whole-body scintigrams were obtained approximately 3-4 hours after intravenous injection of radiotracer. Anterior and posterior views were acquired from vertex to feet. Additional left and right oblique views of the chest were obtained. COMPARISON: [facility], CT, CT CHEST ABD PEL W CON, 05/31/2018, 11:08. FINDINGS: The nuclear medicine bone scan findings were correlated with the bone detail obtained from the CT scan exam date, 05/31/18. Multiple right-sided anterolateral and lateral rib lesions have been identified, the largest of which is at the right fifth rib but more proximally the right fourth rib and the right seventh rib appear involved by bone scanning. Additionally, on the posterior projection a left mid chest rib shows abnormal uptake likely malignant in origin, but a definite osteolytic lesion cannot be seen on the CT scan in this area. The CT scan had shown osteolytic lesions involving the vertebral bodies of T12 and L1 and only a slight degree of elevated isotope uptake is seen in those areas. Finally, there is a large lytic lesion involving the left sacrum at its upper and middle thirds, seen by CT scanning and somewhat underestimated by bone scanning. Suprapubic catheter in place. IMPRESSION: Multifocal metastatic disease is present involving the ribs (right greater than left) and the lumbosacral spine at T12 and L1, and the left sacrum. The bone lesions are somewhat underestimated by the nuclear medicine bone scan, best demonstrated at the T12 and L1 vertebral body levels where clearly present osteolytic lesions on CT scanning are associated with only slight elevated isotope deposition on bone scanning. It may be warranted to obtain further nuclear medicine scanning utilizing PET CT technique given the apparent limitations of nuclear medicine bone scanning in accurately detecting osseous metastatic disease. Dictated by: Duane Kennedy M.D. on 05/31/2018 at 16:14 Approved by: Duane Kennedy M.D. on 05/31/2018 at 16:32
== END ==
PROVIDERS: Visit Provider Internal Medicine Hematology & Oncology
DX: C79.31 Secondary malignant neoplasm of brain (principal); C68.0 Malignant neoplasm of urethra; C79.51 Secondary malignant neoplasm of bone; R91.8 Other nonspecific abnormal finding of lung field; K76.9 Liver disease, unspecified
CPT/HCPCS: 71260; 74177; 78306; A9503; Q9967

== ENCOUNTER 2018-07-01 09:46 | Emergency (ER) | payer OTHER, MEDICAID, SELFPAY ==
[2018-07-01] VITALS (9 sets, daily range): BP systolic 95–139; BP diastolic 66–90; PULSE 80–105; RESP 16–21; TEMP 36.7–37.1; O2SAT 96–99
--- NOTE | 2018-07-01 09:47 | ED.WEAKNESS ---
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 He started radiation last week and was scheduled to go today but was too weak to even get off the ground. The patient states he has been sleeping on the ground because it is better on his back. He denies any recent injuries and is confused but this is apparently his baseline per the . She is unable to help him get off the ground. He denies any fever chills nor chest pain or shortness of breath but states that he is just too weak. He normally is able to get to the car to make it to medical appointments, although with significant help. For the past few days he can even get off the ground and has become covered in his own urine, despite use of a Graf catheter. Patient is a very poor historian and has little to no appetite MD Complaint: generalized weakness Onset (ago): day(s) Duration: constant Location: generalized Migration: none Severity: moderate Quality: numbness Relieving factors: none Exacerbating factors: none Context: new medication Related Data Home Medications Medication Instructions Recorded Confirmed polyethylene glycol 3350 [Miralax] 17 gm PO QDAY PRN #0 08/08/17 07/01/18 benzonatate 1 cap PO TID PRN 05/20/18 07/01/18 enoxaparin 40 mg SUB-Q QPM 05/20/18 07/01/18 pantoprazole 40 mg PO DAILY 05/20/18 07/01/18 trazodone 100 mg PO BEDTIME 05/20/18 07/01/18 dexamethasone 1 mg PO DAILY 07/01/18 07/01/18 morphine 1 tab PO PRN PRN 07/01/18 07/01/18 oxycodone 5 - 10 mg PO Q6H PRN 07/01/18 07/01/18 Previous Rx's Medication Instructions Recorded lidocaine 3 patch TOP DAILY #15 each 05/20/18 Allergies Allergy/AdvReac Type Severity Reaction Status Date / Time No Known Drug Allergies Allergy Verified 07/01/18 10:16 Review of Systems Review of Systems Patient is a very poor historian and is confused, slightly worse per the All systems reviewed & are unremarkable except as noted in HPI and below Constitutional Denies chills, Denies lethargy, Reports poor appetite and Reports weakness Eyes Denies change in vision, Denies eye discharge, Denies irritation and Denies loss of vision ENT Ears, Nose, Mouth, and Throat: Denies change in voice, Denies neck pain and Denies sore throat Cardiovascular Denies chest pain, Denies irregular heart rhythm, Denies lightheadedness, Denies palpitations, Denies dyspnea, Denies dyspnea on exertion and Denies orthopnea Respiratory Denies cough, Denies dyspnea, Denies dyspnea on exertion and Denies wheezing Gastrointestinal Gastrointestinal: Denies abdominal pain, Denies change in bowel habits, Denies diarrhea, Denies nausea and Denies vomiting Genitourinary Denies hematuria, Denies flank pain, Denies urinary incontinence and Denies urinary urgency Musculoskeletal Denies neck pain Integumentary/Breasts Denies pruritus, Denies erythema, Denies rash and Denies wounds Neurologic Reports confusion, Denies loss of vision and Reports weakness Psychiatric Denies anxiety, Reports confusion, Denies depression, Denies homicidal ideation and Denies suicidal ideation Endocrine Denies palpitations Hematologic/Lymphatic Denies easy bruising Allergic/Immunologic Denies wheezing [facility] Medical History Squamous cell carcinoma (Chronic) Orchitis (Chronic) Cellulitis of scrotum (Acute) Urinary retention (Chronic) Mass of brain (Acute) Closed rib fracture (Inactive) Cough (Inactive) Social History Smoking Status: Never smoker Exam Narrative Exam Narrative: Chronically ill 63-year-old male who is confused, although at baseline per Initial Vital Signs Initial Vital Signs: Vital Signs Temperature 98.1 F 07/01/18 10:06 Pulse Rate 105 H 07/01/18 10:06 Respiratory Rate 18 07/01/18 10:06 Blood Pressure 139/90 07/01/18 10:06 Pulse Oximetry 99 07/01/18 10:06 Const General: cooperative, well developed and in distress Nutritional Appearance: obese Orientation: alert, awake, oriented x3 and confused HENMT Head: normocephalic and atraumatic Ears: external ears normal and TM's normal bilaterally Nose: external nose normal and No nasal discharge Face and sinus: sinuses nontender, face symmetric, no sinus tenderness and dry mucous membranes Throat: tonsils normal and uvula midline Eyes General: appearance normal, both eyes and all related structures Eyelids: eyelids normal Conjunctivae: conjunctivae normal Sclera: sclerae normal Pupils: PERRL EOM: EOM intact bilaterally Neck Neck: normal visual inspection, trachea midline, No lymphadenopathy, No midline deformity and No JVD Lymphatic: No lymphedema Chest Chest: normal inspection of the chest Resp Effort & Inspection: normal respiratory effort, able to speak in complete sentences, no respiratory distress and no use of accessory muscles Auscultation: clear to auscultation bilaterally, no rales, no rhonchi and no wheezes Cardio Rate: regular rate Rhythm: regular rhythm Heart Sounds: no click, no gallops, no murmurs and no rubs Pulses: normal peripheral pulses GI Inspection: non-distended Palpation: soft, no hepatosplenomegaly, No guarding, No pulsatile mass and No tender Auscultation: normal bowel sounds Skin General: no rashes or lesions noted, No jaundice and No petechiae Neuro General: alert, awake, oriented x3 and no focal motor deficits Speech: speech normal Extrem General: full ROM, no clubbing, cyanosis or edema, no pedal edema and no calf tenderness Psych Appearance: disheveled Mental Status: mental status grossly normal Speech and Movement: speech and movement normal Course Course Narrative: patient too weak to even ambulate to the car in order to get to hospital to get his radiation therapy. He receives radiation therapy at [facility], this is the most logical, reasonable location for his hospitalization. [facility] hospitalist happy to accept Orders Ordered: ED Orders 07/01/18 11:25 XR chest 1V Stat EKG-12 Lead Stat 07/01/18 11:40 Complete Blood Count AUTO DIFF Stat Comprehensive Metabolic Panel Stat Lactate (Lactic Acid) Stat Lipase Stat Procalcitonin Stat Troponin & CK Cardiac Panel Stat 07/01/18 12:10 Blood Culture Stat Discontinued Medications Sodium Chloride (Normal Saline 0.9%) 1,000 mls @ 150 mls/hr IV CONT SHAYY Last Infusion: 07/01/18 16:41 Dose: 0 mls/hr Admin: 07/01/18 11:57 Dose: 150 mls/hr Vital Signs - 8 hr 07/01/18 11:34 07/01/18 12:55 07/01/18 13:15 Temperature 98.7 F Pulse Rate 92 H 93 H 92 H Respiratory Rate 16 18 18 Blood Pressure Blood Pressure [Left Arm] 129/78 100/75 95/71 Pulse Oximetry 96 96 96 07/01/18 14:13 07/01/18 15:06 07/01/18 15:39 Temperature Pulse Rate 90 91 H 88 Respiratory Rate 19 21 Blood Pressure Blood Pressure [Left Arm] 110/68 99/68 110/73 Pulse Oximetry 97 97 98 07/01/18 16:43 07/01/18 16:45 Temperature Pulse Rate 88 80 Respiratory Rate 16 16 Blood Pressure 110/73 Blood Pressure [Left Arm] 112/66 Pulse Oximetry 99 99 MDM - Weakness Differential Diagnosis Differential diagnosis: Likely hypoglycemia, rhabdomyolysis, sepsis and dehydration Medical Records Attestation: I reviewed the patient's medical records. Lab Data Attestation: I reviewed the patient's lab results. Result diagrams: 07/01/18 11:40 07/01/18 11:40 Lab Results 07/01/18 07/01/18 07/01/18 Range/Units 11:40 11:40 11:40 WBC 7.6 (4.5-11.0) X10^3/uL RBC 4.71 (4.5-5.9) X10^6/uL Hgb 12.2 L (13.5-17.5) g/dL Hct 36.4 L (41-53) % MCV 77.2 L (80-100) fL MCH 25.9 L (26-34) PG MCHC 33.6 (30-36) % RDW 17.0 H (11.6-14.8) % Plt Count 449 H (150-400) X10^3/uL Neut % (Auto) 76.4 H (50-75) % Lymph % (Auto) 12.1 L (25-40) % [place] % (Auto) 7.5 (3-14) % Eos % (Auto) 3.2 (2-4) % Baso % (Auto) 0.8 (0-2) % Neut # (Auto) 5800 (1424-5605) /uL Sodium 137 (137-145) mmol/L Potassium 4.0 (3.4-5.1) mmol/L Chloride 99 (98-107) mmol/L Carbon Dioxide 29 (22-32) mmol/L BUN 10 (9-20) mg/dL Creatinine 0.70 (0.66-1.25) mg/dL Estimated GFR > 60.0 (>60) mL/min BUN/Creatinine Ratio 14.3 (6-22) Glucose 127 H (80-110) mg/dL Lactate (0.7-2.1) mmol/L Calcium 9.6 (8.4-10.2) mg/dL Total Bilirubin 1.4 H (0.2-1.3) mg/dL AST 49 (17-59) IU/L ALT 27 (21-72) IU/L Alkaline Phosphatase 111 (38-126) U/L Total Creatine Kinase 673 H (55-170) U/L CK-MB (CK-2) 5.05 H (<2.37) ng/mL CK-MB (CK-2) Rel Index 0.8 L (1.5-5.0) % Troponin I < 0.012 (0.01-0.034) ng/mL Total Protein 7.3 (6.3-8.2) g/dL Albumin 3.6 (3.5-5.0) g/dL Globulin 3.7 (1.7-4.1) g/dL Albumin/Globulin Ratio 1.0 (1.0-2.8) Lipase 16 L (23-300) U/L Procalcitonin 0.06 (<0.5) ng/mL Urine Color Urine Appearance Urine pH (4.5-8.0) Ur Specific [place] (1.000-1.035) Urine Protein (Negative) Urine Glucose (UA) (Normal) g/dL Urine Ketones (NEGATIVE) Urine Occult Blood (Negative) Urine Nitrate (Negative) Urine Bilirubin (NEGATIVE) Urine Urobilinogen (0.2) E.U./dL Ur Leukocyte Esterase (NEGATIVE) Urine RBC (0-5/HPF) Urine WBC (0-5/HPF) Ur Squamous Epith Cells Urine Bacteria (None) Ur Culture Indicated? Micro UA Comment 07/01/18 07/01/18 Range/Units 11:40 Unknown WBC (4.5-11.0) X10^3/uL RBC (4.5-5.9) X10^6/uL Hgb (13.5-17.5) g/dL Hct (41-53) % MCV (80-100) fL MCH (26-34) PG MCHC (30-36) % RDW (11.6-14.8) % Plt Count (150-400) X10^3/uL Neut % (Auto) (50-75) % Lymph % (Auto) (25-40) % [place] % (Auto) (3-14) % Eos % (Auto) (2-4) % Baso % (Auto) (0-2) % Neut # (Auto) (9841-0079) /uL Sodium (137-145) mmol/L Potassium (3.4-5.1) mmol/L Chloride (98-107) mmol/L Carbon Dioxide (22-32) mmol/L BUN (9-20) mg/dL Creatinine (0.66-1.25) mg/dL Estimated GFR (>60) mL/min BUN/Creatinine Ratio (6-22) Glucose (80-110) mg/dL Lactate 1.3 (0.7-2.1) mmol/L Calcium (8.4-10.2) mg/dL Total Bilirubin (0.2-1.3) mg/dL AST (17-59) IU/L ALT (21-72) IU/L Alkaline Phosphatase (38-126) U/L Total Creatine Kinase (55-170) U/L CK-MB (CK-2) (<2.37) ng/mL CK-MB (CK-2) Rel Index (1.5-5.0) % Troponin I (0.01-0.034) ng/mL Total Protein (6.3-8.2) g/dL Albumin (3.5-5.0) g/dL Globulin (1.7-4.1) g/dL Albumin/Globulin Ratio (1.0-2.8) Lipase (23-300) U/L Procalcitonin (<0.5) ng/mL Urine Color Yellow Urine Appearance Sl cloudy Urine pH 7.0 (4.5-8.0) Ur Specific [place] 1.010 (1.000-1.035) Urine Protein Negative (Negative) Urine Glucose (UA) Negative (Normal) g/dL Urine Ketones Trace H (NEGATIVE) Urine Occult Blood Trace-intact (Negative) Urine Nitrate Positive (Negative) Urine Bilirubin Negative (NEGATIVE) Urine Urobilinogen 0.2 (0.2) E.U./dL Ur Leukocyte Esterase 3+ H (NEGATIVE) Urine RBC 0-1/hpf (0-5/HPF) Urine WBC 10-30/hpf H (0-5/HPF) Ur Squamous Epith Cells 1-5 /hpf Urine Bacteria Many (>30) H (None) Ur Culture Indicated? Specimen cultured Micro UA Comment Not Reportable Imaging Data Chest x-ray: Radiologist's impression: [address] [address] XRay Report Signed Patient: Hugo Allison JMR#: [id number] : 7Acct:[id number] Age/Sex: 63 / MDate of Service: 07/01/18 Loc: ED Accession Number: [id number] Procedure: XR chest 1V Ordering Provider: Endy Mcnulty D.O. PROCEDURE: XR CHEST 1V INDICATIONS: weakness TECHNIQUE: One view of the chest was acquired. COMPARISON: [facility], CT, CT CHEST ABD PEL W CON, 05/31/2018, 11:08. FINDINGS: Surgical changes and devices: None. Lungs and pleura: On this semiupright portable chest examination, no large pneumothorax or large pleural effusions are seen. No focal infiltrates are seen. Low lung volumes are noted. This causes a crowded appearance to the lung markings and limits evaluation. Mediastinum: Mediastinal contours appear normal. Heart size is normal. Bones and chest wall: No suspicious bony lesions. Age-appropriate bony degenerative changes are seen. Overlying soft tissues appear unremarkable. IMPRESSION: Limited portable chest examination, without a significant cardiopulmonary abnormality identified. Dictated by: Contreras Rangel M.D. on 07/01/2018 at 11:47 Approved by: Contreras Rangel M.D. on 07/01/2018 at 11:48 Discharge Plan Departure Patient Disposition: [facility] Clinical Impression: Acute dehydration, Weakness Discharge Date/Time: 07/01/18 16:45 Interventions: ED Discharge Assessment Last Done: 07/01/18 16:43 Prescriptions: No Action polyethylene glycol 3350 [Miralax] 119 GM powder 17 gm PO QDAY PRN (Reason: Constipation) Qty: 0 RF: 0 dexamethasone 1 mg tablet 1 mg PO DAILY RF: 0 morphine 15 mg tablet extended release 1 tab PO PRN PRN (Reason: Pain, Severe) RF: 0 oxycodone 5 mg tablet 5 - 10 mg PO Q6H PRN (Reason: Pain, Moderate) RF: 0 benzonatate 200 mg capsule 1 cap PO TID PRN (Reason: Cough) RF: 0 trazodone 100 mg tablet 100 mg PO BEDTIME RF: 0 pantoprazole 40 mg tablet,delayed release (DR/EC) 40 mg PO DAILY RF: 0 enoxaparin 40 mg/0.4 mL syringe 40 mg Sub-Q QPM RF: 0 lidocaine 5 % adhesive patch,medicated 3 patch TOP DAILY Qty: 15 RF: 0
[2018-07-01 10:25] LABS: Appearance Urine UA SL CLOUDY; Bilirubin Urine UA NEGATIVE (NEGATIVE); Color Urine UA YELLOW; Glucose Urine UA NEGATIVE (Normal); Ketones Urine UA TRACE (NEGATIVE); Leukocyte Esterase Urine UA 3+ (NEGATIVE); Nitrite Urine UA POSITIVE (Negative); Occult Blood Urine UA TRACE-INTACT (Negative); Protein Urine UA NEGATIVE (Negative); Urobilinogen Urine UA 0.2 E.U./dL (0.2)
[2018-07-01 10:33] LABS: Bacteria Urine Many (>30); RBC Urine 0-1/HPF (0-5/HPF); Squamous Epithelial Cell Urine 1-5 /HPF; WBC Urine 10-30/HPF (0-5/HPF)
[2018-07-01 10:34] LABS: Culture Indicated Urine Specimen Cultured
--- NOTE | 2018-07-01 11:25 | DI.RAD.S_ITS ---
PROCEDURE: XR CHEST 1V INDICATIONS: weakness TECHNIQUE: One view of the chest was acquired. COMPARISON: [facility], CT, CT CHEST ABD PEL W CON, 05/31/2018, 11:08. FINDINGS: Surgical changes and devices: None. Lungs and pleura: On this semiupright portable chest examination, no large pneumothorax or large pleural effusions are seen. No focal infiltrates are seen. Low lung volumes are noted. This causes a crowded appearance to the lung markings and limits evaluation. Mediastinum: Mediastinal contours appear normal. Heart size is normal. Bones and chest wall: No suspicious bony lesions. Age-appropriate bony degenerative changes are seen. Overlying soft tissues appear unremarkable. IMPRESSION: Limited portable chest examination, without a significant cardiopulmonary abnormality identified. Dictated by: Contreras Rangel M.D. on 07/01/2018 at 11:47 Approved by: Contreras Rangel M.D. on 07/01/2018 at 11:48
[2018-07-01 11:57] LABS: Add Manual Diff / Slide Review NO; Basophils Percent Auto 0.8 % (0-2); Eosinophils Percent Auto 3.2 % (2-4); Hematocrit 36.4 % (41-53); Hemoglobin 12.2 g/dL (13.5-17.5); Lymphocytes Percent Auto 12.1 % (25-40); Mean Corpuscular HGB Conc 33.6 % (30-36); Mean Corpuscular Hemoglobin 25.9 PG (26-34); Mean Corpuscular Volume 77.2 fL (80-100); Monocytes Percent Auto 7.5 % (3-14); Neutrophils Absolute Auto 5800 /uL (3000-5900); Neutrophils Percent Auto 76.4 % (50-75); Platelet Count 449 X10^3/uL (150-400); Red Blood Cell Count 4.71 X10^6/uL (4.5-5.9); White Blood Cell Count 7.6 X10^3/uL (4.5-11.0)
[2018-07-01] MEDS: SODIUM CHLORIDE 0.9% 1,000 ML 150 ML IV (11:57)
[2018-07-01 12:09] LABS: Lactate (Lactic Acid) 1.3 mmol/L (0.7-2.1)
[2018-07-01 12:11] LABS: Alanine Aminotransferase 27 IU/L (21-72); Albumin 3.6 g/dL (3.5-5.0); Alkaline Phosphatase 111 U/L (38-126); Aspartate Aminotransferase 49 IU/L (17-59); BUN Creatinine Ratio 14.3 (6-22); Bilirubin Total 1.4 mg/dL (0.2-1.3); Blood Urea Nitrogen 10 mg/dL (9-20); Calcium 9.6 mg/dL (8.4-10.2); Carbon Dioxide 29 mmol/L (22-32); Chloride 99 mmol/L (98-107); Creatine Kinase 673 U/L (55-170); Estimated Glomerular Filt Rate > 60.0 mL/min (>60); Globulin 3.7 g/dL (1.7-4.1); Glucose 127 mg/dL (80-110); HEMOLYSIS 23 (0-50); Lipase 16 U/L (23-300); Sodium 137 mmol/L (137-145); Total Protein 7.3 g/dL (6.3-8.2)
[2018-07-01 12:22] LABS: Troponin I < 0.012 ng/mL (0.01-0.034)
[2018-07-01 12:26] LABS: CKMB % Relative Index 0.8 % (1.5-5.0); Creatine Kinase MB 5.05 ng/mL (<2.37)
[2018-07-01 12:29] LABS: Procalcitonin 0.06 ng/mL (<0.5)
--- NOTE | 2018-07-01 13:32 | ED_ITS ---
HPI - Weakness General Chief complaint: Altered Mental Status Stated complaint: Weakness Time Seen by Provider: 07/01/18 09:46 Source: patient and EMS Mode of arrival: EMS Limitations: no limitations History of Present Illness HPI Narrative: 63-year-old male with history of metastatic bladder cancer to spine and brain and recent radiation therapy at [facility] presents via EMS for evaluation of severe generalized weakness over the past few days. He started radiation last week and was scheduled to go today but was too weak to even get off the ground. The patient states he has been sleeping on the ground because it is better on his back. He denies any recent injuries and is confused but this is apparently his baseline per the . She is unable to help him get off the ground. He denies any fever chills nor chest pain or shortness of breath but states that he is just too weak. He normally is able to get to the car to make it to medical appointments, although with significant help. For the past few days he can even get off the ground and has become covered in his own urine, despite use of a Graf catheter. Patient is a very poor historian and has little to no appetite MD Complaint: generalized weakness Onset (ago): day(s) Duration: constant Location: generalized Migration: none Severity: moderate Quality: numbness Relieving factors: none Exacerbating factors: none Context: new medication Related Data Home Medications Medication Instructions Recorded Confirmed polyethylene glycol 3350 [Miralax] 17 gm PO QDAY PRN #0 08/08/17 07/01/18 benzonatate 1 cap PO TID PRN 05/20/18 07/01/18 enoxaparin 40 mg SUB-Q QPM 05/20/18 07/01/18 pantoprazole 40 mg PO DAILY 05/20/18 07/01/18 trazodone 100 mg PO BEDTIME 05/20/18 07/01/18 dexamethasone 1 mg PO DAILY 07/01/18 07/01/18 morphine 1 tab PO PRN PRN 07/01/18 07/01/18 oxycodone 5 - 10 mg PO Q6H PRN 07/01/18 07/01/18 Previous Rx's Medication Instructions Recorded lidocaine 3 patch TOP DAILY #15 each 05/20/18 Allergies Allergy/AdvReac Type Severity Reaction Status Date / Time No Known Drug Allergies Allergy Verified 07/01/18 10:16 Review of Systems Review of Systems Patient is a very poor historian and is confused, slightly worse per the All systems reviewed & are unremarkable except as noted in HPI and below Constitutional Denies chills, Denies lethargy, Reports poor appetite and Reports weakness Eyes Denies change in vision, Denies eye discharge, Denies irritation and Denies loss of vision ENT Ears, Nose, Mouth, and Throat: Denies change in voice, Denies neck pain and Denies sore throat Cardiovascular Denies chest pain, Denies irregular heart rhythm, Denies lightheadedness, Denies palpitations, Denies dyspnea, Denies dyspnea on exertion and Denies orthopnea Respiratory Denies cough, Denies dyspnea, Denies dyspnea on exertion and Denies wheezing Gastrointestinal Gastrointestinal: Denies abdominal pain, Denies change in bowel habits, Denies diarrhea, Denies nausea and Denies vomiting Genitourinary Denies hematuria, Denies flank pain, Denies urinary incontinence and Denies urinary urgency Musculoskeletal Denies neck pain Integumentary/Breasts Denies pruritus, Denies erythema, Denies rash and Denies wounds Neurologic Reports confusion, Denies loss of vision and Reports weakness Psychiatric Denies anxiety, Reports confusion, Denies depression, Denies homicidal ideation and Denies suicidal ideation Endocrine Denies palpitations Hematologic/Lymphatic Denies easy bruising Allergic/Immunologic Denies wheezing [facility] Medical History Squamous cell carcinoma (Chronic) Orchitis (Chronic) Cellulitis of scrotum (Acute) Urinary retention (Chronic) Mass of brain (Acute) Closed rib fracture (Inactive) Cough (Inactive) Social History Smoking Status: Never smoker Exam Narrative Exam Narrative: Chronically ill 63-year-old male who is confused, although at baseline per Initial Vital Signs Initial Vital Signs: Vital Signs Temperature 98.1 F 07/01/18 10:06 Pulse Rate 105 H 07/01/18 10:06 Respiratory Rate 18 07/01/18 10:06 Blood Pressure 139/90 07/01/18 10:06 Pulse Oximetry 99 07/01/18 10:06 Const General: cooperative, well developed and in distress Nutritional Appearance: obese Orientation: alert, awake, oriented x3 and confused HENMT Head: normocephalic and atraumatic Ears: external ears normal and TM's normal bilaterally Nose: external nose normal and No nasal discharge Face and sinus: sinuses nontender, face symmetric, no sinus tenderness and dry mucous membranes Throat: tonsils normal and uvula midline Eyes General: appearance normal, both eyes and all related structures Eyelids: eyelids normal Conjunctivae: conjunctivae normal Sclera: sclerae normal Pupils: PERRL EOM: EOM intact bilaterally Neck Neck: normal visual inspection, trachea midline, No lymphadenopathy, No midline deformity and No JVD Lymphatic: No lymphedema Chest Chest: normal inspection of the chest Resp Effort & Inspection: normal respiratory effort, able to speak in complete sentences, no respiratory distress and no use of accessory muscles Auscultation: clear to auscultation bilaterally, no rales, no rhonchi and no wheezes Cardio Rate: regular rate Rhythm: regular rhythm Heart Sounds: no click, no gallops, no murmurs and no rubs Pulses: normal peripheral pulses GI Inspection: non-distended Palpation: soft, no hepatosplenomegaly, No guarding, No pulsatile mass and No tender Auscultation: normal bowel sounds Skin General: no rashes or lesions noted, No jaundice and No petechiae Neuro General: alert, awake, oriented x3 and no focal motor deficits Speech: speech normal Extrem General: full ROM, no clubbing, cyanosis or edema, no pedal edema and no calf tenderness Psych Appearance: disheveled Mental Status: mental status grossly normal Speech and Movement: speech and movement normal Course Course Narrative: patient too weak to even ambulate to the car in order to get to hospital to get his radiation therapy. He receives radiation therapy at [facility], this is the most logical, reasonable location for his hospitalization. [facility] hospitalist happy to accept Orders Ordered: ED Orders 07/01/18 11:25 XR chest 1V Stat EKG-12 Lead Stat 07/01/18 11:40 Complete Blood Count AUTO DIFF Stat Comprehensive Metabolic Panel Stat Lactate (Lactic Acid) Stat Lipase Stat Procalcitonin Stat Troponin & CK Cardiac Panel Stat 07/01/18 12:10 Blood Culture Stat Discontinued Medications Sodium Chloride (Normal Saline 0.9%) 1,000 mls @ 150 mls/hr IV CONT SHAYY Last Infusion: 07/01/18 16:41 Dose: 0 mls/hr Admin: 07/01/18 11:57 Dose: 150 mls/hr Vital Signs - 8 hr 07/01/18 11:34 07/01/18 12:55 07/01/18 13:15 Temperature 98.7 F Pulse Rate 92 H 93 H 92 H Respiratory Rate 16 18 18 Blood Pressure Blood Pressure [Left Arm] 129/78 100/75 95/71 Pulse Oximetry 96 96 96 07/01/18 14:13 07/01/18 15:06 07/01/18 15:39 Temperature Pulse Rate 90 91 H 88 Respiratory Rate 19 21 Blood Pressure Blood Pressure [Left Arm] 110/68 99/68 110/73 Pulse Oximetry 97 97 98 07/01/18 16:43 07/01/18 16:45 Temperature Pulse Rate 88 80 Respiratory Rate 16 16 Blood Pressure 110/73 Blood Pressure [Left Arm] 112/66 Pulse Oximetry 99 99 MDM - Weakness Differential Diagnosis Differential diagnosis: Likely hypoglycemia, rhabdomyolysis, sepsis and dehydration Medical Records Attestation: I reviewed the patient's medical records. Lab Data Attestation: I reviewed the patient's lab results. Result diagrams: 07/01/18 11:40 07/01/18 11:40 Lab Results 07/01/18 07/01/18 07/01/18 Range/Units 11:40 11:40 11:40 WBC 7.6 (4.5-11.0) X10^3/uL RBC 4.71 (4.5-5.9) X10^6/uL Hgb 12.2 L (13.5-17.5) g/dL Hct 36.4 L (41-53) % MCV 77.2 L (80-100) fL MCH 25.9 L (26-34) PG MCHC 33.6 (30-36) % RDW 17.0 H (11.6-14.8) % Plt Count 449 H (150-400) X10^3/uL Neut % (Auto) 76.4 H (50-75) % Lymph % (Auto) 12.1 L (25-40) % Person % (Auto) 7.5 (3-14) % Eos % (Auto) 3.2 (2-4) % Baso % (Auto) 0.8 (0-2) % Neut # (Auto) 5800 (5911-2843) /uL Sodium 137 (137-145) mmol/L Potassium 4.0 (3.4-5.1) mmol/L Chloride 99 (98-107) mmol/L Carbon Dioxide 29 (22-32) mmol/L BUN 10 (9-20) mg/dL Creatinine 0.70 (0.66-1.25) mg/dL Estimated GFR > 60.0 (>60) mL/min BUN/Creatinine Ratio 14.3 (6-22) Glucose 127 H (80-110) mg/dL Lactate (0.7-2.1) mmol/L Calcium 9.6 (8.4-10.2) mg/dL Total Bilirubin 1.4 H (0.2-1.3) mg/dL AST 49 (17-59) IU/L ALT 27 (21-72) IU/L Alkaline Phosphatase 111 (38-126) U/L Total Creatine Kinase 673 H (55-170) U/L CK-MB (CK-2) 5.05 H (<2.37) ng/mL CK-MB (CK-2) Rel Index 0.8 L (1.5-5.0) % Troponin I < 0.012 (0.01-0.034) ng/mL Total Protein 7.3 (6.3-8.2) g/dL Albumin 3.6 (3.5-5.0) g/dL Globulin 3.7 (1.7-4.1) g/dL Albumin/Globulin Ratio 1.0 (1.0-2.8) Lipase 16 L (23-300) U/L Procalcitonin 0.06 (<0.5) ng/mL Urine Color Urine Appearance Urine pH (4.5-8.0) Ur Specific [place] (1.000-1.035) Urine Protein (Negative) Urine Glucose (UA) (Normal) g/dL Urine Ketones (NEGATIVE) Urine Occult Blood (Negative) Urine Nitrate (Negative) Urine Bilirubin (NEGATIVE) Urine Urobilinogen (0.2) E.U./dL Ur Leukocyte Esterase (NEGATIVE) Urine RBC (0-5/HPF) Urine WBC (0-5/HPF) Ur Squamous Epith Cells Urine Bacteria (None) Ur Culture Indicated? Micro UA Comment 07/01/18 07/01/18 Range/Units 11:40 Unknown WBC (4.5-11.0) X10^3/uL RBC (4.5-5.9) X10^6/uL Hgb (13.5-17.5) g/dL Hct (41-53) % MCV (80-100) fL MCH (26-34) PG MCHC (30-36) % RDW (11.6-14.8) % Plt Count (150-400) X10^3/uL Neut % (Auto) (50-75) % Lymph % (Auto) (25-40) % Person % (Auto) (3-14) % Eos % (Auto) (2-4) % Baso % (Auto) (0-2) % Neut # (Auto) (7405-9795) /uL Sodium (137-145) mmol/L Potassium (3.4-5.1) mmol/L Chloride (98-107) mmol/L Carbon Dioxide (22-32) mmol/L BUN (9-20) mg/dL Creatinine (0.66-1.25) mg/dL Estimated GFR (>60) mL/min BUN/Creatinine Ratio (6-22) Glucose (80-110) mg/dL Lactate 1.3 (0.7-2.1) mmol/L Calcium (8.4-10.2) mg/dL Total Bilirubin (0.2-1.3) mg/dL AST (17-59) IU/L ALT (21-72) IU/L Alkaline Phosphatase (38-126) U/L Total Creatine Kinase (55-170) U/L CK-MB (CK-2) (<2.37) ng/mL CK-MB (CK-2) Rel Index (1.5-5.0) % Troponin I (0.01-0.034) ng/mL Total Protein (6.3-8.2) g/dL Albumin (3.5-5.0) g/dL Globulin (1.7-4.1) g/dL Albumin/Globulin Ratio (1.0-2.8) Lipase (23-300) U/L Procalcitonin (<0.5) ng/mL Urine Color Yellow Urine Appearance Sl cloudy Urine pH 7.0 (4.5-8.0) Ur Specific [place] 1.010 (1.000-1.035) Urine Protein Negative (Negative) Urine Glucose (UA) Negative (Normal) g/dL Urine Ketones Trace H (NEGATIVE) Urine Occult Blood Trace-intact (Negative) Urine Nitrate Positive (Negative) Urine Bilirubin Negative (NEGATIVE) Urine Urobilinogen 0.2 (0.2) E.U./dL Ur Leukocyte Esterase 3+ H (NEGATIVE) Urine RBC 0-1/hpf (0-5/HPF) Urine WBC 10-30/hpf H (0-5/HPF) Ur Squamous Epith Cells 1-5 /hpf Urine Bacteria Many (>30) H (None) Ur Culture Indicated? Specimen cultured Micro UA Comment Not Reportable Imaging Data Chest x-ray: Radiologist's impression: [address] [address] XRay Report Signed Patient: Hugo Allison JMR#: [id number] : 7Acct:[id number] Age/Sex: 63 / MDate of Service: 07/01/18 Loc: ED Accession Number: [id number] Procedure: XR chest 1V Ordering Provider: Endy Mcnulty D.O. PROCEDURE: XR CHEST 1V INDICATIONS: weakness TECHNIQUE: One view of the chest was acquired. COMPARISON: [facility], CT, CT CHEST ABD PEL W CON, 05/31/2018, 11:08. FINDINGS: Surgical changes and devices: None. Lungs and pleura: On this semiupright portable chest examination, no large pneumothorax or large pleural effusions are seen. No focal infiltrates are seen. Low lung volumes are noted. This causes a crowded appearance to the lung markings and limits evaluation. Mediastinum: Mediastinal contours appear normal. Heart size is normal. Bones and chest wall: No suspicious bony lesions. Age-appropriate bony degenerative changes are seen. Overlying soft tissues appear unremarkable. IMPRESSION: Limited portable chest examination, without a significant cardiopulmonary abnormality identified. Dictated by: Contreras Rangel M.D. on 07/01/2018 at 11:47 Approved by: Contreras Rangel M.D. on 07/01/2018 at 11:48 Discharge Plan Departure Patient Disposition: [facility] Clinical Impression: Acute dehydration, Weakness Discharge Date/Time: 07/01/18 16:45 Interventions: ED Discharge Assessment Last Done: 07/01/18 16:43 Prescriptions: No Action polyethylene glycol 3350 [Miralax] 119 GM powder 17 gm PO QDAY PRN (Reason: Constipation) Qty: 0 RF: 0 dexamethasone 1 mg tablet 1 mg PO DAILY RF: 0 morphine 15 mg tablet extended release 1 tab PO PRN PRN (Reason: Pain, Severe) RF: 0 oxycodone 5 mg tablet 5 - 10 mg PO Q6H PRN (Reason: Pain, Moderate) RF: 0 benzonatate 200 mg capsule 1 cap PO TID PRN (Reason: Cough) RF: 0 trazodone 100 mg tablet 100 mg PO BEDTIME RF: 0 pantoprazole 40 mg tablet,delayed release (DR/EC) 40 mg PO DAILY RF: 0 enoxaparin 40 mg/0.4 mL syringe 40 mg Sub-Q QPM RF: 0 lidocaine 5 % adhesive patch,medicated 3 patch TOP DAILY Qty: 15 RF: 0
--- NOTE | 2018-07-01 15:38 | PC.NURSE ---
Report called to Jennifer LEY at [facility].
--- NOTE | 2018-07-01 15:39 | PC.NURSE ---
1100: Patient given his own pain medication (morphine and oxycodone) by . OK per [place] [facility].
== END 2018-07-01 16:45 | disposition short-term general hospital (02) ==
PROVIDERS: Emergency Provider Emergency Medicine
DX: E86.0 Dehydration (principal); R53.1 Weakness
CPT/HCPCS: 36415; 36591; 71045; 80053; 81001; 82550; 82553; 83605; 83690; 84145; 84484; 85025; 87040; 87077; 87086; 87186; 93005; 96360; 96361; 99284; 99285